=== PATIENT | female | born 1980 | race American Indian/Alaskan Native ===

== ENCOUNTER 2018-04-20 22:18 | Inpatient (IN) | payer SELFPAY ==
[2018-04-20] MEDS ORDERED: BENADRYL ONE (22:23)
[2018-04-20] MEDS ORDERED: DECADRON ONE (22:23)
[2018-04-20] MEDS ORDERED: PEPCID IV ONE ×2 (22:23→22:25)
[2018-04-20] MEDS ORDERED: S2 RACEPINEPHRINE 2.25% IH ONE ×2 (22:24→22:25)
[2018-04-20] MEDS ORDERED: DECADRON IV ONE (22:25)
[2018-04-20] MEDS ORDERED: BENADRYL IV ONE (22:25)
--- NOTE | 2018-04-20 22:40 | Emergency Department Report ---
HPI - General Time Seen by Provider: 04/20/18 22:25 - HPI HPI: Room 20 The patient is a 37-year-old female presented with a chief complaint throat and facial swelling. The patient states her symptoms began approximately 3 days ago when an insect bit her on her upper lip. The patient states since then she' s noticed swelling in her face and her throat. The patient states she's been taking Benadryl at home but it has not helped. The patient states she has some shortness of breath as well. Patient denies taking any new medications and denies being on SCOT inhibitor Location: Throat/face Duration: 3 days Quality: Swelling Severity: Moderate Modifying factors: [see above] Context: [see above] Mode of transportation: [not driving] ED Past Medical Hx - Past Medical History Hx Asthma: Yes - Medications Home Medications: Home Medications Medication Instructions Recorded Confirmed Last Taken Type No Known Home Medications [No 04/20/18 04/20/18 Unknown History Reported Home Medications] ED Review of Systems ROS: Stated complaint: POSSIBLE ALLERGIC Other details as noted in HPI Eyes: denies: eye pain ENT: other (left lip pain, facial pain) Respiratory: shortness of breath Cardiovascular: denies: chest pain Gastrointestinal: denies: abdominal pain Genitourinary: denies: dysuria Musculoskeletal: denies: back pain Neurological: denies: headache Physical Exam - Physical Exam Physical Exam: GENERAL: The patient is well-developed well-nourished female presenting dramatic fashion being wheeled in to room via wheelchair complaining throat swelling. [] HEENT: Normocephalic. Atraumatic. Extraocular motions are intact. Patient has moist mucous membranes. Approximately marble sized swelling to the left upper lip very tender to palpation with overlying scab. Oropharynx clear. Patient's phonation is initially muffled but clears after medication was administered NECK: Supple. No meningitic signs are noted. There is no stridor CHEST/LUNGS: Clear to auscultation. There is no respiratory distress noted. HEART/CARDIOVASCULAR: Regular. There is no tachycardia. There is no gallop rub or murmur. ABDOMEN: Abdomen is soft, nontender. Patient has normal bowel sounds. There is no abdominal distention. SKIN: There is no rash. There is no edema. There is no diaphoresis. and gait. MUSCULOSKELETAL: There is no evidence of acute injury. ED Course - Reevaluation(s) Reevaluation #1: 04/20/18 22:32 Patient states she is feeling a little better Reevaluation #2: 04/20/18 23:24 Patient states she still feels okay. Resting comfortably in no acute distress. Normal phonation ED Medical Decision Making - Lab Data Result diagrams: 04/20/18 22:30 04/20/18 22:30 Laboratory Tests 04/20/18 04/20/18 04/20/18 22:30 22:30 23:52 WBC 12.4 H RBC 5.11 H Hgb 12.2 Hct 37.4 MCV 73 L MCH 24 L MCHC 33 RDW 17.9 H Plt Count 177 Lymph % (Auto) 24.5 [place] % (Auto) 11.0 H Eos % (Auto) 3.4 Baso % (Auto) 0.6 Lymph # 3.0 [place] # 1.4 H Eos # 0.4 Baso # 0.1 Add Manual Diff Complete Seg Neutrophils % 59.9 Seg Neutrophils # 7.5 Sodium 137 Potassium 3.8 Chloride 101.5 Carbon Dioxide 23 Anion Gap 16 BUN 6 L Creatinine 0.7 Estimated GFR > 60 BUN/Creatinine Ratio 9 Glucose 128 H Calcium 8.3 L HCG, Qual Negative - Radiology Data Radiology results: report reviewed (CT neck), image reviewed (CT neck) CT neck (read by radiologist)-normal examination - Medical Decision Making Patient much improved at time of disposition however the patient will be admitted to the hospital for further observation and management. This decision is based off of the patient's presentation and history. Upon presentation the patient did not have normal phonation and was in significant distress until this was ameliorated by treatment. Patient also reports a history of possible angioedema years ago which required her to be intubated. Although patient is doing well at this time her history is concerning enough that it warrants further observation - Differential Diagnosis facial infection, labial abscess, angioedema, retropharyngeal abscess, Critical care attestation.: If time is entered above; I have spent that time in minutes in the direct care of this critically ill patient, excluding procedure time. ED Disposition Clinical Impression: Infection of lip, Facial swelling, Leukocytosis Disposition: OP ADMIT IP TO THIS HOSP Is pt being admited?: Yes Does the pt Need Aspirin: No Condition: Fair Time of Disposition: 01:30 (hospitalist paged (Dr. Jocy Zambrano))
[2018-04-20 22:49] LABS: Basophils # (Auto) 0.1 K/mm3 (0.0-0.1); Eosinophils # (Auto) 0.4 K/mm3 (0.0-0.4); Eosinophils % (Auto) 3.4 % (0.0-4.3); Monocytes # (Auto) 1.4 K/mm3 (0.0-0.8)
[2018-04-20 22:59] LABS: BUN/Creatinine Ratio 9; Blood Urea Nitrogen 6 mg/dL (7-17); Calcium 8.3 mg/dL (8.4-10.2); Hemolysis Index 13
[2018-04-20 23:15] LABS: Hematocrit 37.4 % (30.3-42.9); Hemoglobin 12.2 gm/dl (10.1-14.3); Red Blood Count 5.11 M/mm3 (3.65-5.03)
[2018-04-20 23:16] LABS: Basophils % (Auto) 0.6 % (0.0-1.8); Lymphocytes % (Auto) 24.5 % (13.4-35.0); Mean Corpuscular HGB Conc 33 % (30-34); Mean Corpuscular Hemoglobin 24 pg (28-32); Mean Corpuscular Volume 73 fl (79-97); Platelet Count 177 K/mm3 (140-440); Red Cell Distribution Width 17.9 % (13.2-15.2)
[2018-04-21] MEDS ORDERED: CLEOCIN 900 MG/50 mL 900 MG/50 ML BAG IV ONE (00:39)
--- NOTE | 2018-04-21 01:37 | Cat Scan Report ---
FINAL REPORT PROCEDURE: CT NECK W CON TECHNIQUE: Computerized axial tomography of the soft tissue neck was performed following the IV injection of iodinated nonionic contrast. HISTORY: throat swelling COMPARISON: No prior studies are available for comparison. FINDINGS: Skull and scalp: Normal. Paranasal sinuses: Normal. Nasopharynx: Normal . Oral cavity: Normal . Epiglottis/vallecula: Normal . Larynx/pyriform sinuses: Normal . Thyroid gland: Normal . Lymph nodes: None enlarged . Salivary glands: Normal . Upper thorax: Normal . IMPRESSION: Normal Examination
--- NOTE | 2018-04-21 02:07 | History and Physical Report ---
History of Present Illness Date of examination: 04/21/18 History of present illness: 37 year old woman with history of asthma, RA comes to the emergency room with complains of being bitten by an insect 3 days ago. six hours later, she felt a bump on left upper lip and noticed swelling of the left side of the face. She took 30mg of prednisone yesterday and benadryl. Today she started having difficulting swallowing, her throat felt tight so she came to the ER. She was given epi, steroids in the ER and now feels better Constitutional: no weight loss, chills Ears, eyes, nose, mouth and throat: no nasal congestion, no nasal discharge, no sinus pressure, no vision change, no red eye. Neck: No neck pain or rigidity. Cardiovascular: no palpitations Respiratory: no shortness of breath, no cough Gastrointestinal: no abdominal pain, hematochezia Genitourinary : no frequency , no hematuria Musculoskeletal: no joint swelling or muscle ache Integumentary: no rash, no pruritis Neurological: no parathesias, no numbness, no focal weakness Endocrine: no cold or heat intolerance, no polyuria or polydipsia Hematologic/Lymphatic: no easy bruising, no easy bleeding, no gland swelling Allergic/Immunologic: no urticaria, no angioedema. PAST MEDICAL HISTORY: Asthma PAST SURGICAL HISTORY: None SOCIAL HISTORY: Social alcohol use,marijuana, smoke 1 pack /day FAMILY HISTORY: Hypertension Medications and Allergies Allergies Allergy/AdvReac Type Severity Reaction Status Date / Time amoxicillin Allergy Angioedema Verified 04/20/18 22:40 pseudoephedrine Allergy Hives Verified 04/20/18 22:41 Home Medications Medication Instructions Recorded Confirmed Last Taken Type No Known Home Medications [No 04/20/18 04/20/18 Unknown History Reported Home Medications] Exam - Physical Exam Narrative exam: Gen. appearance: Patient lying in bed, no apparent distress HEENT: Normocephalic, atraumatic, pupils equally round and reactive to light, extraocular movement intact, and no sclericterus,. No JVD or thyromegaly or nodule,neck supple, no carotid bruit ,Left upper lip with entry point, tender, swollen, +erythema, pus pocket noted, mucous membranes moist, no exudate or erythema Heart: S1, S2, regular rate and rhythm Lungs: Clear to auscultation bilaterally, breathing comfortable Abdomen: Positive bowel sounds, nontender, nondistended, no organomegaly Extremity: No edema, cyanosis, clubbing Skin: No rash, nodules, warm, dry Neuro: Oriented 3, cranial nerves II-12 intact, speech is fluent, motor and sensory intact - Constitutional Vitals: Temp Pulse Resp BP Pulse Ox 98.7 F 80 23 108/81 96 04/20/18 22:36 04/21/18 00:01 04/21/18 00:01 04/21/18 00:01 04/20/18 23:00 Results - Labs CBC & Chem 7: 04/20/18 22:30 04/20/18 22:30 Labs: Abnormal lab results 04/20/18 04/20/18 Range/Units 22:30 22:30 WBC 12.4 H (4.5-11.0) K/mm3 RBC 5.11 H (3.65-5.03) M/mm3 MCV 73 L (79-97) fl MCH 24 L (28-32) pg RDW 17.9 H (13.2-15.2) % [place] % (Auto) 11.0 H (0.0-7.3) % [place] # 1.4 H (0.0-0.8) K/mm3 BUN 6 L (7-17) mg/dL Glucose 128 H (65-100) mg/dL Calcium 8.3 L (8.4-10.2) mg/dL Assessment and Plan CT NECK reviewed Assessment Allergic reaction, acute Cellulitis of left upper lip Asthma Plan Admit to medicine Start high dose steroids, beadryl, pepcid and antibiotc DVT prophalaxis
[2018-04-21] MEDS ORDERED: TYLENOL PO PRN (02:30)
[2018-04-21] MEDS ORDERED: SODIUM CHLORIDE FLUSH SYRINGE 10 ML IV PRN (02:30)
[2018-04-21] MEDS ORDERED: PERCOCET 5/325 PO PRN (02:30)
[2018-04-21] MEDS ORDERED: TYLENOL PR PRN (02:30)
[2018-04-21] MEDS ORDERED: ZOFRAN IV PRN (02:30)
[2018-04-21] MEDS: BENADRYL IV SCH ×3 (04:48→11:11)
[2018-04-21 08:52] VITALS: BP 145/91
[2018-04-21] MEDS ORDERED: SODIUM CHLORIDE FLUSH SYRINGE 10 ML IV SCH (10:00)
[2018-04-21] MEDS ORDERED: PEPCID IV SCH (10:00)
[2018-04-21] MEDS ORDERED: LOVENOX SUB-Q SCH ×2 (10:00)
--- NOTE | 2018-04-21 12:03 | Discharge Summary ---
Providers - Providers Date of Admission: 04/21/18 02:30 Date of discharge: 04/21/18 Attending physician: MARIBELL BARAJAS Primary care physician: [employer]IGATOR Hospitalization Condition: Stable Hospital course: Patient is 37 yo woman with a history of bipolar/schizophrenia (per pt) and tobacco dependency who presents with left facial swelling and left upper lip. She states an insect bite but looks like a herpetic lesion with vesicle. She said, "it better not be herpes" She is crying and causing an uproar because the nurse told her she couldn't go outside to smoke and offered her a nicotine patch. "i don't wanna a patch because i don't wanna stop smoking." -Right upper lip single purulent vesicle, suspect HSV blisters/cold sore, airway patient, no need to be in the hospital. She can get HSV testing outpatient if she likes. -Right Facial cellulitis on admission resolved now. -Tobacco dependency: counseling done, declined nicotine patch Disposition: DC- TO HOME OR SELFCARE Time spent for discharge: 34 minutes Core Measure Documentation - Palliative Care Palliative Care/ Comfort Measures: Not Applicable - Core Measures Any of the following diagnoses?: none - VTE Discharge Requirements Deep Vein Thrombosis/Pulmonary Embolism Present on Admission: No Has pt received <5 days of overlap therapy or INR<2.0: No Anticoagulant overlap therapy prescribed at discharge: No Contraindication No Overlap Therapy order at DC: Not Indicated Exam - Physical Exam Narrative exam: GEN: WDWN, NAD, Awake, Alert, Orientated x 3 HEENT: NCAT, EOMI, PERRL, OP Clear, right upper lip single purulent blister, no internal oral involvement seen NECK: supple, no adenopathy, no thyromegaly, no JVD CVS/HEART: RRR, normal S1S2, pulses present bilaterally CHEST/LUNGS: CTA B, Symmetrical chest expansion, good air entry bilaterally GI/Abdomen: soft, NTND, good bowel sounds, no guarding or rebound /Bladder: no suprapubic tenderness, no CVA or paraspinal tenderness EXT/Skin: no c/c/e, no obvious rash MSK: FROM x 4 Neuro: CN 2-12 grossly intact, no new focal deficits Psych: anxious - Constitutional Vitals: Temp Pulse Resp BP Pulse Ox 98.0 F 71 16 145/91 98 04/21/18 07:56 04/21/18 07:56 04/21/18 07:56 04/21/18 07:56 04/21/18 08:22 Plan Activity: other (no strenous activity until cleared by pcp) Diet: regular Additional Instructions: Have PCP take a swab of the lip lesion Follow up with: PRIMARY CARE, [Primary Care Provider] - 7 Days [facility] [Provider Group] - 7 Days Prescriptions: Docosanol [Abreva] 1 applicatio TP 5XD #1 tube
== END 2018-04-21 13:30 | disposition home or self-care (01) | DRG 159 ==
LOC: ED 22:18 → 3A 04-21 02:30
PROVIDERS: ADMIT Internal Medicine; ATTEND Internal Medicine
DX: K13.0 Diseases of lips (principal); T78.40XA Allergy, unspecified, initial encounter; F17.210 Nicotine dependence, cigarettes, uncomplicated; J45.909 Unspecified asthma, uncomplicated; F31.9 Bipolar disorder, unspecified; Z82.49 Family history of ischemic heart disease and other diseases of the circulatory system; Z88.8 Allergy status to other drugs, medicaments and biological substances
CPT/HCPCS: 36415; 70491; 80048; 84703; 85025; 94640; J1100; J1200; J1650; J2930; Q9967

== ENCOUNTER 2018-05-25 07:08 | Emergency (ER) | payer SELFPAY ==
[2018-05-25 08:30] LABS: BUN/Creatinine Ratio 10; Blood Urea Nitrogen 8 mg/dL (7-17); Calcium 8.7 mg/dL (8.4-10.2); Hemolysis Index 13
[2018-05-25 09:14] LABS: Bilirubin,Urine NEG (Negative); Blood,Urine NEG (Negative); Color,Urine Yellow (Yellow); Mucus,Urine 3+ /HPF; Protein,Urine <15 mg/dL mg/dL (Negative); Urobilinogen,Urine < 2.0 mg/dL (<2.0)
[2018-05-25 09:19] LABS: Amphetamine Screen,Urine PRESUMPTIVE NEGATIVE; Benzodiazepines Screen,Urine PRESUMPTIVE NEGATIVE; Cocaine Screen,Urine PRESUMPTIVE NEGATIVE; Methadone Screen,Urine PRESUMPTIVE NEGATIVE; Opiate Screen,Urine PRESUMPTIVE NEGATIVE
[2018-05-25 09:23] LABS: Basophils % (Auto) 0.7 % (0.0-1.8); Eosinophils # (Auto) 0.2 K/mm3 (0.0-0.4); Eosinophils % (Auto) 2.3 % (0.0-4.3); Hematocrit 42.2 % (30.3-42.9); Hemoglobin 13.1 gm/dl (10.1-14.3); Lymphocytes # (Auto) 1.5 K/mm3 (1.2-5.4); Lymphocytes % (Auto) 22.6 % (13.4-35.0); Mean Corpuscular HGB Conc 31 % (30-34); Mean Corpuscular Volume 75 fl (79-97); Monocytes # (Auto) 0.7 K/mm3 (0.0-0.8); Monocytes % (Auto) 10.1 % (0.0-7.3); Red Blood Count 5.62 M/mm3 (3.65-5.03); Red Cell Distribution Width 18.1 % (13.2-15.2)
[2018-05-25 09:36] LABS: Mean Corpuscular Hemoglobin 23 pg (28-32); Platelet Count 151 K/mm3 (140-440)
[2018-05-25 09:37] LABS: Cannabinoid Screen,Urine PRESUMPTIVE POSITIVE
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
[2018-05-26] MEDS ORDERED: NAPROSYN PO ONE (09:31)
[2018-05-26 12:24] VITALS: BP 122/86
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
[2018-05-27] MEDS ORDERED: ABILIFY PO SCH (10:00)
== END 2018-05-26 20:30 ==
LOC: ED 07:08 → EEVIPCON 07:08 → ED 05-26 20:30
DX: R45.851 Suicidal ideations (principal); F43.9 Reaction to severe stress, unspecified; F31.9 Bipolar disorder, unspecified; F41.9 Anxiety disorder, unspecified; M06.9 Rheumatoid arthritis, unspecified; J45.909 Unspecified asthma, uncomplicated; F17.200 Nicotine dependence, unspecified, uncomplicated; F12.10 Cannabis abuse, uncomplicated; Z88.1 Allergy status to other antibiotic agents; Z88.8 Allergy status to other drugs, medicaments and biological substances; Z91.013 Allergy to seafood
CPT/HCPCS: 36415; 80048; 80307; 81001; 84703; 85025; 99285; G0480; 80320